=== PATIENT | female | born 2000 | race Caucasian/White ===

== ENCOUNTER 2024-03-02 18:05 | Inpatient (IN) | payer OTHER ==
[2024-03-02] MEDS ORDERED: Carboprost 250 MCG/ML AMP IM PRN (19:10)
[2024-03-02] MEDS ORDERED: Misoprostol 200 MCG TAB PR PRN (19:10)
[2024-03-02] MEDS ORDERED: Tranexamic Acid 1,000 MG/10 ML VIAL IVP PRN (19:10)
[2024-03-02] MEDS ORDERED: Promethazine HCl 25 MG/ML VIAL IM PRN (19:10)
[2024-03-02] MEDS ORDERED: Acetaminophen 500 MG TAB PO PRN (19:10)
[2024-03-02] MEDS ORDERED: hydrALAZINE 20 MG/ML VIAL SLOW IVP PRN (19:10)
[2024-03-02] MEDS ORDERED: Ondansetron PF 4 MG/2 ML Vial IVP PRN (19:10)
[2024-03-02] MEDS ORDERED: Docusate 100 MG CAP PO PRN (19:10)
[2024-03-02] MEDS ORDERED: Oxytocin 30 units/NS 500 ML 500 ML IV SCH ×2 (19:15)
[2024-03-02 19:59] LABS: Hematocrit 33.6 % (34.9-44.5); Hemoglobin 11.4 g/dL (12.0-15.5); Mean Corpuscular HGB CONC 33.9 g/dL (32.0-36.0); Mean Corpuscular Hemoglobin 33.4 pg (27.0-33.0); Mean Corpuscular Volume 98.5 fL (81.6-98.3); Mean Platelet Volume 12.5 fL (7.4-10.4); Platelet Count 112 10x3/uL (150-450); RBC Distribution Width 14.8 % (11.5-14.5); Red Blood Cell (RBC) Count 3.41 10x6/uL (3.90-5.03); White Blood Cell (WBC) Count 8.1 10x3/uL (3.5-10.5)
[2024-03-02 22:07] LABS: Syphilis Antibody Nonreactive (Nonreactive); Syphilis Antibody Index 0.05 S/CO (<1.00 Non-Reactive)
[2024-03-02 22:34] LABS: HBsAg Index 0.18 S/CO (0-0.99); Hep B Surf Ag - L&D Non-Reactive S/CO (NonReactive)
[2024-03-03 05:14] VITALS: BMI 22.4
[2024-03-03] MEDS: Oxytocin 30 units/NS 500 ML 500 ML IV SCH (08:35)
[2024-03-03] MEDS: fentaNYL/Ropivacaine Epidural 100 ML ONE (19:55)
[2024-03-03] MEDS ORDERED: Lactated Ringer's 500 ML IV PRN (20:37)
[2024-03-03] MEDS ORDERED: ePHEDrine Sulfate 50 MG/10 ML VIAL SLOW IVP PRN (20:37)
[2024-03-03] MEDS ORDERED: Ondansetron PF 4 MG/2 ML Vial IVP PRN (20:37)
[2024-03-03] MEDS ORDERED: Promethazine HCl 25 MG/ML VIAL IM PRN (20:37)
[2024-03-03] MEDS ORDERED: Naloxone HCl 0.4 mg/ml Vial IVP PRN ×2 (20:37)
[2024-03-03] MEDS ORDERED: Moisturizing Cream (Eucerin) 113 GM JAR TOP PRN (20:37)
[2024-03-03] MEDS ORDERED: diphenhydrAMINE 50 MG/ML VIAL IVP PRN (20:37)
[2024-03-03] MEDS ORDERED: fentaNYL 2 mcg/Ropivacaine 0.2% Epidural 100 ML CADD EPIDURAL SCH (20:45)
[2024-03-03] MEDS ORDERED: Communication Order-Pharmacy FS SCH (20:45)
[2024-03-04] MEDS: Methylergonovine 0.2 MG/ML VIAL IM PRN (02:55)
[2024-03-04] MEDS: Lidocaine 1% (PF) 30 ML VIAL SC PRN (03:00)
[2024-03-04] MEDS: Acetaminophen 325 MG TAB PO PRN (03:24)
[2024-03-04] MEDS ORDERED: Lanolin Ointment 7 GM TUBE TOP PRN (03:27)
[2024-03-04] MEDS ORDERED: Bisacodyl 10 MG SUPP PR PRN (03:27)
[2024-03-04] MEDS ORDERED: diphenhydrAMINE 25 MG CAP PO PRN (03:27)
[2024-03-04] MEDS ORDERED: Milk Of Magnesia 30 ML UDCUP PO PRN (03:27)
[2024-03-04] MEDS ORDERED: Preparation H Ointment 28 GM TUBE PR PRN (03:27)
[2024-03-04] MEDS ORDERED: hydrALAZINE 20 MG/ML VIAL SLOW IVP PRN (03:27)
[2024-03-04] MEDS: Ibuprofen 800 MG TAB PO PRN (03:59)
[2024-03-04] MEDS: fentaNYL 50 mcg/mL 1 mL Vial ONE (05:48)
[2024-03-04] MEDS: Lactated Ringer's 1,000 ML IV SCH ×2 (05:48)
[2024-03-04] MEDS: Lidocaine 1% (PF) 30 ML VIAL ONE (05:49)
[2024-03-04] MEDS: Ibuprofen 800 MG TAB PO SCH (05:49)
[2024-03-04] MEDS: Dexmedetomidine 200 MCG/2 ML VIAL ONE (05:49)
[2024-03-04] MEDS: Boostrix 0.5 ML (Tdap) VIAL (>/=7 yrs of age) IM ONE (05:49)
[2024-03-04] MEDS ORDERED: Bupivacaine 0.25% HCL 30 ML VIAL ONE (08:00)
[2024-03-04] MEDS: Docusate 100 MG CAP PO SCH (09:37)
[2024-03-04] MEDS: Prenatal Vitamin 1 TAB PO SCH (09:38)
[2024-03-04] MEDS: Ferrous Sulfate 325 MG TAB PO SCH (15:52)
[2024-03-05] MEDS: Benzocaine-Menthol 82.5 ML CAN TOP PRN (00:16)
[2024-03-05] MEDS ORDERED: Docusate 100 MG CAP PO PRN (09:16)
[2024-03-05] MEDS ORDERED: Milk Of Magnesia 30 ML UDCUP PO PRN (09:16)
[2024-03-05 20:24] VITALS: TEMP 98.1
[2024-03-06] MEDS: Ibuprofen 800 MG TAB PO SCH (05:17)
[2024-03-06 08:08] VITALS: BP 103/62
== END 2024-03-06 15:40 | disposition home or self-care (01) | DRG 806 ==
LOC: CSHLD 18:05 → CSHPP 03-04 04:55
PROVIDERS: ADMIT Family Medicine; ATTEND Family Medicine
PROC: 10E0XZZ Delivery of Products of Conception, External Approach (ICD-10-PCS; principal; 2024-03-04)
PROC: 0UQMXZZ Repair Vulva, External Approach (ICD-10-PCS; 2024-03-04)
DX: O36.5930 Maternal care for other known or suspected poor fetal growth, third trimester, not applicable or unspecified (principal); O41.03X0 Oligohydramnios, third trimester, not applicable or unspecified; Z37.0 Single live birth; Z3A.37 37 weeks gestation of pregnancy; O99.02 Anemia complicating childbirth; D64.9 Anemia, unspecified; O70.0 First degree perineal laceration during delivery
CPT/HCPCS: 36415; 51701; 51702; 59200; 85027; 86780; 86850; 86900; 86901; 87340; 88307; J0665; J2210; J2590; J3010